=== PATIENT | female | born 1985 | race Caucasian/White ===

== ENCOUNTER 2016-04-27 21:35 | Emergency (ER) | payer OTHER ==
[2016-04-27 21:43] VITALS: BP 133/73
--- NOTE | 2016-04-27 21:58 | UC ---
Skin Complaint HPI - HPI Summary HPI Summary: small cut to the right palm when she accidentally broke a light bulb tonight. Normal digital function, no numbness. Tetanus current given here 2014, verified. - History of Current Complaint Chief Complaint: UCUpperExtremity Time Seen by Provider: 04/27/16 21:40 Stated Complaint: HAND WOUND Hx Obtained From: Patient Hx Last Menstrual Period: 03/31/16 ?: No Onset/Duration: Sudden Onset Skin Exposure Onset/Duration: Hours Ago - within the hour Onset Severity: Mild Current Severity: Mild Location: Discrete, Hand (Right) Aggravating: Touch Alleviating: Cold Compresses Associated Signs & Symptoms: Positive: Negative Related History: Trauma - Allergy/Home Medications Allergies/Adverse Reactions: Allergies Allergy/AdvReac Type Severity Reaction Status Date / Time environmental Allergy Sneezing Uncoded 04/27/16 21:43 Home Medications: Home Medications Acetaminophen [Acetaminophen Extra Stren] 500 mg PO DAILY 04/27/16 [History Confirmed 04/27/16] Review of Systems Constitutional: Negative Skin: Other - small cut, dry skin on feet. Eyes: Negative ENT: Negative Respiratory: Negative Cardiovascular: Other - has some right leg edema x months Gastrointestinal: Negative Genitourinary: Negative Motor: Negative Neurovascular: Negative Musculoskeletal: Negative Neurological: Negative Psychological: Negative All Other Systems Reviewed And Are Negative: Yes PMH/Surg Hx/FS Hx/Imm Hx - Additional Past Medical History Additional PMH: obese. Respiratory History Of: Reports: Asthma - Surgical History Surgical History: Yes Surgery Procedure, Year, and Place: T&A, R salivary gland and lymph node in August 2011, - Family History Known Family History: Positive: Diabetes - Social History Occupation: Unemployed Lives: With Family - 3 yo son Alcohol Use: Rare Substance Use Type: Marijuana Substance Use Comment - Amount & Last Used: OCCASIONAL Smoking Status (MU): Heavy Every Day Tobacco Smoker Type: Cigarettes Amount Used/How Often: 1/2 pack daily - Immunization History Most Recent Tetanus Shot: 02/27/15 Physical Exam Triage Information Reviewed: Yes Appearance: No Pain Distress, Obese Vital Signs: Initial Vital Signs Temp 98.8 F 04/27/16 21:36 Pulse 103 04/27/16 21:36 Resp 18 04/27/16 21:36 BP 133/73 04/27/16 21:36 Pulse Ox 100 04/27/16 21:36 Vital Signs Reviewed: Yes ENT Exam: Normal Respiratory: Positive: Lungs clear Cardiovascular: Positive: RRR, No Murmur, Other: - trace edema around right ankle, none on the left. Skin Exam: Other - right palm with 5 mm small flap laceration which does NOT go through the full layer of keratin, no active bleeding. Normal digital movement Applied steristrip and koban dressing. Course/Dx - Course Course Of Treatment: steristrips, keep wound clean. tetanus is already current. - Diagnoses Provider Diagnoses: small laceration palm of right hand. Discharge - Discharge Plan Condition: Good Disposition: HOME Patient Education Materials: Laceration (ED) Additional Instructions: Your laceration does not go through the full skin thickness, and steristrips were applied with a light koban dressing. You can take off the dressing tomorrow , and remove the steristrips as they lift away. Monitor for infection, but the risk is low. Your last tetanus was February 2015, and did not require an update.
== END 2016-04-27 22:11 | disposition home or self-care (01) ==
LOC: UCCORT 21:35
DX: S61.411A Laceration without foreign body of right hand, initial encounter (principal); W25.XXXA Contact with sharp glass, initial encounter; Y93.9 Activity, unspecified; Y92.9 Unspecified place or not applicable; F17.210 Nicotine dependence, cigarettes, uncomplicated
CPT/HCPCS: 99211; G0463

== ENCOUNTER 2016-06-16 15:58 | Emergency (ER) | payer SELFPAY ==
[2016-06-16 16:31] VITALS: BP 138/80
--- NOTE | 2016-06-16 16:45 | UC ---
Complaint Female HPI - HPI Summary HPI Summary: patient has been having urinary frequency, dysuria, and chills for the past three days - History Of Current Complaint Chief Complaint: UCGU Stated Complaint: URINARY Time Seen by Provider: 06/16/16 16:12 Hx Obtained From: Patient Hx Last Menstrual Period: 06/16/16 ?: No Onset/Duration: Sudden Onset, Lasting Days Timing: Constant Severity Initially: Mild Severity Currently: Moderate Character: Burning, Cramping Aggravating Factor(s): Urination Associated Signs And Symptoms: Positive: Back Pain - Risk Factors Ectopic Risk Factor: Negative - Allergies/Home Medications Allergies/Adverse Reactions: Allergies Allergy/AdvReac Type Severity Reaction Status Date / Time environmental Allergy Sneezing Uncoded 06/16/16 16:24 Home Medications: Home Medications Phenazopyridine HCl [Azo Standard Maximum Stre] 97.5 mg PO TID 06/16/16 [ History Confirmed 06/16/16] PMH/Surg Hx/FS Hx/Imm Hx Previously Healthy: Yes Respiratory History Of: Reports: Asthma - Surgical History Surgical History: Yes Surgery Procedure, Year, and Place: T&A, R salivary gland and lymph node in August 2011, - Family History Known Family History: Positive: Diabetes - Social History Alcohol Use: None Substance Use Type: Marijuana Substance Use Comment - Amount & Last Used: OCCASIONAL Smoking Status (MU): Heavy Every Day Tobacco Smoker Type: Cigarettes Amount Used/How Often: 1/2 pack daily - Immunization History Most Recent Influenza Vaccination: 6541-2825 Most Recent Tetanus Shot: 02/27/15 Review of Systems Constitutional: Chills Skin: Negative Eyes: Negative ENT: Negative Respiratory: Negative Cardiovascular: Negative Genitourinary: Dysuria, Frequency, Urgency Motor: Negative Neurovascular: Negative Musculoskeletal: Negative Neurological: Negative Psychological: Negative All Other Systems Reviewed And Are Negative: Yes Physical Exam Triage Information Reviewed: Yes Appearance: Well-Nourished, Ill-Appearing, Pain Distress Vital Signs: Initial Vital Signs Temp 99.8 F 06/16/16 16:19 Pulse 92 06/16/16 16:19 Resp 17 06/16/16 16:19 BP 138/80 06/16/16 16:19 Pulse Ox 100 06/16/16 16:19 Vital Signs Reviewed: Yes Eye Exam: Normal Eyes: Positive: Conjunctiva Clear ENT Exam: Normal ENT: Positive: Normal ENT inspection, Hearing grossly normal, Pharynx normal, TMs normal Dental Exam: Normal Neck: Positive: Supple, Nontender, No Lymphadenopathy Respiratory: Positive: Chest non-tender, Lungs clear, Normal breath sounds Cardiovascular: Positive: RRR, No Murmur, Pulses Normal Abdomen Description: Positive: Nontender, No Organomegaly, Soft Bowel Sounds: Positive: Present Musculoskeletal: Positive: Strength Intact, ROM Intact, No Edema Neurological: Positive: Alert, Muscle Tone Normal Psychological: Positive: Age Appropriate Behavior Skin Exam: Normal Complaint Female Dx - Course Course Of Treatment: hx obtained, exam performed, meds reviewed, Ua not able to perform due to Azo use, urine culture sent, meds prescribed. - Differential Dx/Diagnosis Provider Diagnoses: Dysuria. urinary frequency. chills Discharge - Discharge Plan Condition: Stable Disposition: HOME Patient Education Materials: Dysuria (ED) Additional Instructions: Take the antibiotic as prescribed. Urine Culture was obtained, if symptoms continue then follow up. We will call you if any changes need to be made. Increase your fluid intake. Stop the azo after tonight to make sure you are responding to antibiotics
[2016-06-16 19:10] LABS: Urine Bilirubin Negative (Negative); Urine Glucose Negative (Negative); Urine Nitrite Negative (Negative)
== END 2016-06-16 16:58 | disposition home or self-care (01) ==
LOC: UCCORT 15:58
DX: R30.0 Dysuria (principal); R35.0 Frequency of micturition; R68.83 Chills (without fever); F12.90 Cannabis use, unspecified, uncomplicated; F17.210 Nicotine dependence, cigarettes, uncomplicated
CPT/HCPCS: 81003; 87077; 87086; 87186; 99212; G0463

== ENCOUNTER 2017-03-13 14:10 | Emergency (ER) | payer SELFPAY ==
[2017-03-13 15:17] VITALS: BP 133/67
--- NOTE | 2017-03-13 16:11 | UC ---
Respiratory Complaint HPI - HPI Summary HPI Summary: cough x 2 weeks + chest congestion , nasal congestion , no fever, no chills, + productive cough , yellow sputum, + wheezing , - History of Current Complaint Chief Complaint: UCRespiratory Stated Complaint: COUGH/CONGESTION Time Seen by Provider: 03/13/17 15:45 Hx Obtained From: Patient Hx Last Menstrual Period: 03/09/17 ?: No Onset/Duration: Gradual Onset, Lasting Weeks - 2, Still Present Severity Initially: Moderate Severity Currently: Moderate Pain Intensity: 0 Pain Scale Used: 0-10 Numeric Character: Cough: Productive - yellow Aggravating Factors: Exertion, Deep Breaths Alleviating Factors: Nothing Associated Signs And Symptoms: Positive: Wheezing, URI, Nasal Congestion. Negative: Dyspnea, Fever, Chills, Pleuritic Chest Pain, Hemoptysis, Dizziness, Calf Pain, Calf Swelling, Edema - Allergies/Home Medications Allergies/Adverse Reactions: Allergies Allergy/AdvReac Type Severity Reaction Status Date / Time environmental Allergy Sneezing Uncoded 03/13/17 15:17 PMH/Surg Hx/FS Hx/Imm Hx Respiratory History: Asthma - Surgical History Surgical History: Yes Surgery Procedure, Year, and Place: T&A, R salivary gland and lymph node in August 2011, - Family History Known Family History: Positive: Diabetes - Social History Alcohol Use: Rare Substance Use Type: Marijuana Substance Use Comment - Amount & Last Used: OCCASIONAL Smoking Status (MU): Heavy Every Day Tobacco Smoker Type: Cigarettes Amount Used/How Often: 1/2 pack daily - Immunization History Most Recent Influenza Vaccination: [id number] Most Recent Tetanus Shot: 02/27/15 Review of Systems Constitutional: Negative Skin: Negative Eyes: Negative ENT: Nasal Discharge Respiratory: Cough Cardiovascular: Negative Is Patient Immunocompromised?: No All Other Systems Reviewed And Are Negative: Yes Physical Exam Triage Information Reviewed: Yes Appearance: Well-Appearing, No Pain Distress, Well-Nourished Vital Signs: Initial Vital Signs Temp 97.9 F 03/13/17 15:13 Pulse 98 03/13/17 15:13 Resp 18 03/13/17 15:13 BP 133/67 03/13/17 15:13 Pulse Ox 99 03/13/17 15:13 Vital Signs Reviewed: Yes Eyes: Positive: Conjunctiva Clear ENT Exam: Normal ENT: Positive: Normal ENT inspection, Hearing grossly normal, Pharynx normal Dental Exam: Normal Neck: Positive: Supple, Nontender, No Lymphadenopathy Respiratory: Positive: Chest non-tender, Wheezing Cardiovascular: Positive: RRR, No Murmur Skin Exam: Normal UC Diagnostic Evaluation - Laboratory O2 Sat by Pulse Oximetry: 99 Respiratory Course/Dx - Differential Dx/Diagnosis Provider Diagnoses: bronchitis Discharge - Discharge Plan Condition: Stable Disposition: HOME Prescriptions: Albuterol HFA INHALER* [Ventolin HFA Inhaler*] 2 puff INH Q6H PRN #1 mdi PRN Reason: Wheezing Azithromycin TAB* [Zithromax TAB (Z-JUSTIN) 250 mg #6 tabs] 2 tab PO .TODAY, THEN 1 DAILY #1 justin Guaifenesin-Codeine [Cheratussin AC] 10 ml PO Q8H #120 ml MDD 30 ml Patient Education Materials: Acute Bronchitis (ED) Referrals: Cecilia Bains MD [Primary Care Provider] - If Needed
== END 2017-03-13 15:58 | disposition home or self-care (01) ==
LOC: UCCORT 14:10
DX: J40 Bronchitis, not specified as acute or chronic (principal); J45.909 Unspecified asthma, uncomplicated; F12.90 Cannabis use, unspecified, uncomplicated; F17.210 Nicotine dependence, cigarettes, uncomplicated
CPT/HCPCS: 99212; G0463